=== PATIENT | female | born 1985 | race African-American/Black ===

== ENCOUNTER 2020-09-17 18:15 | Emergency (ER) | payer MEDICAID ==
[~2020-09-17] VITALS: Ht 167.6 cm; Wt 94.8 kg
[2020-09-17 18:26] VITALS: BP 147/97
--- NOTE | 2020-09-17 19:51 | NUR ---
URINE COLLECTED, SENT TO LAB.
[2020-09-17 19:58] LABS: BILIRUBIN,URINE SMALL (NEGATIVE); COLOR,URINE YELLOW (YELLOW); LEUKOCYTE ESTERASE ,URINE Negative (NEGATIVE); NITRITE, URINE Negative (NEGATIVE); PH,URINE 5.5 (5.0-8.0); PROTEIN,URINE 100 mg/dl (NEGATIVE); UGLUCOSE Negative (NEGATIVE)
[2020-09-17 20:05] LABS: BACTERIA,URINE Rare /HPF (None Seen); RBC,URINE 21-50 /HPF (0-2); SQUAMOUS EPITHELIAL CELL,UR Few /HPF (None Seen); WBC,URINE NONE SEEN /HPF (0-3)
[2020-09-17] MEDS ORDERED: FLUT16SP16 NS (20:18)
[2020-09-17] MEDS ORDERED: PSEU120T83 PO (20:18)
[2020-09-17] MEDS ORDERED: AMOX-430 PO (20:18)
== END 2020-09-17 21:13 | disposition home or self-care (01) ==
LOC: ER 18:21
DX: J32.4 Chronic pansinusitis (principal); J30.2 Other seasonal allergic rhinitis; R11.0 Nausea
CPT/HCPCS: 81001; 84703-TC

== ENCOUNTER 2021-11-01 10:39 | Emergency (ER) | payer MEDICAID ==
[~2021-11-01] VITALS: Ht 167.6 cm; Wt 97.5 kg
[~2021-11-01 10:39] MED LIST: AMOX-430 PO; FLUT16SP16 NS; PSEU120T83 PO
[2021-11-01 10:56] VITALS: BP 132/98
--- NOTE | 2021-11-01 11:00 | NUR ---
BIBS C/O SINUS PRESSURE SINCE YESTERDAY. IN ROOM AIR AND DENIES SOB. RESPIRATION REGULAR AND UNLABORED. WILL CONTINUE TO MONITOR THE PATIENT.
[2021-11-01] MEDS ORDERED: FLUT16SP16 BNOSTRILS (11:12)
--- NOTE | 2021-11-01 11:18 | NUR ---
Patient discharged to home in stable condition. Written and verbal after care instructions given. Patient verbalizes understanding of instruction.
== END 2021-11-01 11:19 | disposition home or self-care (01) ==
LOC: ER 10:45
DX: J01.90 Acute sinusitis, unspecified (principal); Z79.899 Other long term (current) drug therapy

== ENCOUNTER 2022-02-07 15:27 | Emergency (ER) | payer MEDICAID ==
[~2022-02-07] VITALS: Ht 167.6 cm; Wt 97.5 kg
[~2022-02-07 15:27] MED LIST changes: +FLUT16SP16 BNOSTRILS
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
--- NOTE | 2022-02-07 17:00 | NUR ---
PATIENT TAKEN TO RADIOLOGY DEPT. AMBULATORY
--- NOTE | 2022-02-07 18:41 | NUR ---
Patient discharged to home in stable condition. Written and verbal after care instructions given. Patient verbalizes understanding of instruction.
[2022-02-07 18:42] VITALS: BP 125/85
== END 2022-02-07 18:40 | disposition home or self-care (01) ==
LOC: ER 15:42
DX: S13.4XXA Sprain of ligaments of cervical spine, initial encounter (principal); S33.5XXA Sprain of ligaments of lumbar spine, initial encounter; S63.501A Unspecified sprain of right wrist, initial encounter; Z79.899 Other long term (current) drug therapy; V89.2XXA Person injured in unspecified motor-vehicle accident, traffic, initial encounter; Y93.89 Activity, other specified; Y92.89 Other specified places as the place of occurrence of the external cause; Y99.8 Other external cause status
CPT/HCPCS: 72050-TC; 72110-TC; 73110; 84703-TC

== ENCOUNTER 2022-04-22 11:05 | Emergency (ER) | payer MEDICAID ==
[~2022-04-22] VITALS: Ht 167.6 cm; Wt 96.2 kg
[2022-04-22] MEDS ORDERED: PSEUDOEPHEDRINE HCL 30 MG TABLET PO ONE (11:30)
[2022-04-22] MEDS ORDERED: BENZONATATE 100 MG CAPSULE PO PRN (11:30)
[2022-04-22] MEDS ORDERED: PSEUDOEPHEDRINE HCL 30 MG TABLET ONE (11:41)
[2022-04-22] MEDS ORDERED: BENZ-13 PO (12:24)
[2022-04-22 12:30] VITALS: BP 130/83
== END 2022-04-22 12:34 | disposition home or self-care (01) ==
LOC: ER 11:09
DX: R05.9 Cough, unspecified (principal); J98.11 Atelectasis; Z20.822 Contact with and (suspected) exposure to COVID-19
CPT/HCPCS: 99284; 71045; 87426; C9803

== ENCOUNTER 2022-09-04 19:18 | Emergency (ER) | payer MEDICAID ==
[~2022-09-04] VITALS: Ht 167.6 cm; Wt 96.6 kg
[~2022-09-04 19:18] MED LIST changes: +BENZ-13 PO
[2022-09-04 19:43] VITALS: BP 134/77
--- NOTE | 2022-09-04 19:43 | NUR ---
BIBSELF C/O L EAR PAIN X4 DAYS
[2022-09-04] MEDS ORDERED: CARB15DR12 LEFT EAR (22:13)
[2022-09-04] MEDS ORDERED: NEOM10DR11 LEFT EAR (22:14)
--- NOTE | 2022-09-04 22:19 | NUR ---
Patient discharged to home in stable condition. Written and verbal after care instructions given. Patient verbalizes understanding of instruction.
== END 2022-09-04 22:20 | disposition home or self-care (01) ==
LOC: ER 19:22
DX: H61.22 Impacted cerumen, left ear (principal); H60.92 Unspecified otitis externa, left ear; Z79.899 Other long term (current) drug therapy

== ENCOUNTER 2022-09-07 11:57 | Emergency (ER) | payer MEDICAID ==
[~2022-09-07] VITALS: Ht 167.6 cm; Wt 96.6 kg
[~2022-09-07 11:57] MED LIST changes: +CARB15DR12 LEFT EAR; +NEOM10DR11 LEFT EAR
--- NOTE | 2022-09-07 12:00 | NUR ---
BIBS FOR EARACHE. A/O X 3, ABLE TO MAKE NEEDS KNOWN, TOLERATING WELL ON ROOM AIR.
[2022-09-07] MEDS ORDERED: AMOX500C2 PO (12:43)
[2022-09-07] MEDS ORDERED: IBUPROFEN 600 MG TABLET PO ONE (13:00)
[2022-09-07] MEDS ORDERED: AMOXICILLIN TRIHYDRATE 500 MG CAPSULE PO ONE (13:00)
[2022-09-07] MEDS ORDERED: AMOX/CLAVULANATE 250 MG TABLET ONE (13:01)
[2022-09-07] MEDS ORDERED: IBUPROFEN 600 MG TABLET ONE (13:01)
--- NOTE | 2022-09-07 13:07 | NUR ---
Patient discharged to home in stable condition. Written and verbal after care instructions given. Patient verbalizes understanding of instruction.
[2022-09-07 13:08] VITALS: BP 142/78
--- NOTE | 2022-09-07 15:01 | NUR ---
CHANGED AMOXICILLIN TO AUGMENTIN INSTEAD
[2022-09-08] MEDS ORDERED: AMOX/CLAVULANATE 250 MG TABLET PO ONE (09:30)
== END 2022-09-07 13:09 | disposition home or self-care (01) ==
LOC: ER 12:01
DX: H92.02 Otalgia, left ear (principal)

== ENCOUNTER 2022-09-22 03:28 | Emergency (ER) | payer MEDICAID ==
[~2022-09-22] VITALS: Ht 167.6 cm; Wt 96.6 kg
[~2022-09-22 03:28] MED LIST changes: +AMOX500C2 PO
[2022-09-22 03:48] VITALS: BP 120/75
--- NOTE | 2022-09-22 03:50 | NUR ---
BIBDAUGHTER WITH CC OF LT EAR PAIN X2 WEEKS, +HEADACHE X3DAYS. PT IS HAVING COUGH AND CONGESTION FOR WEEKS NOW. TOOK IBUPROFEN 800MG NO RELIEF. PLACED IN RM 19.
[2022-09-22] MEDS ORDERED: CIPR7.5D9 EACH EAR (04:04)
--- NOTE | 2022-09-22 04:15 | NUR ---
Patient discharged to home in stable condition. Written and verbal after care instructions given. Patient verbalizes understanding of instruction.
== END 2022-09-22 04:15 | disposition home or self-care (01) ==
LOC: ER 03:30
DX: H60.92 Unspecified otitis externa, left ear (principal); H61.22 Impacted cerumen, left ear; H92.02 Otalgia, left ear; E03.9 Hypothyroidism, unspecified; Z79.899 Other long term (current) drug therapy

== ENCOUNTER 2023-03-24 08:30 | Emergency (ER) | payer MEDICAID ==
[~2023-03-24] VITALS: Ht 167.6 cm; Wt 98.9 kg
[~2023-03-24 08:30] MED LIST changes: +CIPR7.5D9 EACH EAR
[2023-03-24] MEDS ORDERED: KETOROLAC TROMETHAMINE 15 MG/ML VIAL IV ONE (10:00)
[2023-03-24] MEDS ORDERED: ACETAMINOPHEN ES 500 MG TABLET PO ONE (10:00)
[2023-03-24] MEDS ORDERED: IV NS 0.9% 1,000 ML BAG IV ONE (10:00)
[2023-03-24] MEDS ORDERED: ACETAMINOPHEN ES 500 MG TABLET ONE (10:09)
[2023-03-24] MEDS ORDERED: KETOROLAC TROMETHAMINE 15 MG/ML VIAL ONE (10:09)
[2023-03-24 10:24] LABS: BASOPHILS # (AUTO) 0.1 K/uL (0.0-0.2); BASOPHILS % (AUTO) 1.1 % (0.0-2.0); EOSINOPHILS # (AUTO) 0.5 K/uL (0.0-0.7); EOSINOPHILS % (AUTO) 6.9 % (0.0-6.0); HEMATOCRIT 39 % (33-45); HEMOGLOBIN 11.9 g/dL (11.5-14.8); LYMPHOCYTES # (AUTO) 1.7 K/uL (0.8-4.8); LYMPHOCYTES % (AUTO) 22.6 % (20.0-44.0); MEAN CORPUSCULAR HEMOGLOBIN 23 PG (26.0-33.0); MEAN CORPUSCULAR HGB CONC 31 g/dl (31.0-36.0); MEAN CORPUSCULAR VOLUME 73 fL (82-100); MONOCYTES # (AUTO) 0.5 K/uL (0.1-1.30); MONOCYTES % (AUTO) 7.2 % (2.0-12.0); NEUTROPHILS # (AUTO) 4.5 K/uL (1.8-8.9); NEUTROPHILS % (AUTO) 62.2 % (43.0-81.0); PLATELET COUNT (AUTO) 264 K/uL (150-450); RED BLOOD CELL COUNT(AUTO) 5.31 MIL/uL (4.0-5.2); RED CELL DISTRIBUTION WIDTH 20.2 % (11.5-15.0); WHITE BLOOD COUNT (AUTO) 7.3 K/uL (4.3-11.0)
[2023-03-24 10:29] LABS: CALCIUM, SERUM 8.5 mg/dL (8.5-10.1); CARBON DIOXIDE 28 mmol/L (21-32); CHLORIDE 108 mmol/L (98-107); CREATININE 0.7 mg/dL (0.6-1.3); GLUCOSE 89 mg/dL (74-106); POTASSIUM 3.7 mmol/L (3.5-5.1); SODIUM SERUM 140 mmol/L (136-145); UREA NITROGEN, BLOOD 10 mg/dL (7-18)
[2023-03-24 10:34] LABS: ALANINE AMINOTRANSFERASE 19 U/L (12-78); ALBUMIN 3.1 g/dL (3.4-5.0); ALKALINE PHOSPHATASE 54 U/L (46-116); ASPARTATE AMINOTRANSFERASE 16 U/L (15-37); BILIRUBIN,DIRECT 0.1 mg/dL (0.0-0.2); BILIRUBIN,TOTAL 0.3 mg/dL (0.2-1.0); TOTAL PROTEIN, SERUM 7.5 g/dL (6.4-8.2)
[2023-03-24] MEDS ORDERED: IBUP-1955 PO (12:15)
[2023-03-24] MEDS ORDERED: AZIT250T13 PO (12:15)
[2023-03-24] MEDS ORDERED: AMOX-430 PO (12:15)
[2023-03-24] MEDS ORDERED: BENZ-13 PO (12:15)
[2023-03-24 12:52] VITALS: BP 125/85; TEMP 97.9; O2SAT 97
== END 2023-03-24 12:35 | disposition home or self-care (01) ==
LOC: ER 08:32
DX: J06.9 Acute upper respiratory infection, unspecified (principal); R05.9 Cough, unspecified; R09.81 Nasal congestion; R51.9 Headache, unspecified; E03.9 Hypothyroidism, unspecified; Z20.822 Contact with and (suspected) exposure to COVID-19
CPT/HCPCS: 99285; 96374; 71045; 96361; 87426; 93005; 87804 ×2; 85025; 80048; 80076; 36415; 84484; J7030; J1885; C9803

== ENCOUNTER 2023-11-04 21:20 | Emergency (ER) | payer MEDICAID ==
[~2023-11-04] VITALS: Ht 167.6 cm; Wt 99.8 kg
[~2023-11-04 21:20] MED LIST changes: +AZIT250T13 PO; +IBUP-1955 PO
[2023-11-04 22:13] LABS: BASOPHILS % (AUTO) 0.4 % (0.0-2.0); EOSINOPHILS # (AUTO) 0.4 K/uL (0.0-0.7); EOSINOPHILS % (AUTO) 4.4 % (0.0-6.0); HEMATOCRIT 39 % (33-45); HEMOGLOBIN 12.5 g/dL (11.5-14.8); LYMPHOCYTES # (AUTO) 2.9 K/uL (0.8-4.8); LYMPHOCYTES % (AUTO) 33.6 % (20.0-44.0); MEAN CORPUSCULAR HEMOGLOBIN 25 PG (26.0-33.0); MEAN CORPUSCULAR HGB CONC 32 g/dl (31.0-36.0); MEAN CORPUSCULAR VOLUME 80 fL (82-100); MONOCYTES # (AUTO) 0.5 K/uL (0.1-1.30); MONOCYTES % (AUTO) 6.2 % (2.0-12.0); NEUTROPHILS # (AUTO) 4.9 K/uL (1.8-8.9); NEUTROPHILS % (AUTO) 55.4 % (43.0-81.0); PLATELET COUNT (AUTO) 272 K/uL (150-450); WHITE BLOOD COUNT (AUTO) 8.8 K/uL (4.3-11.0)
[2023-11-04 22:37] LABS: CALCIUM, SERUM 8.5 mg/dL (8.5-10.1); CARBON DIOXIDE 27 mmol/L (21-32); CHLORIDE 104 mmol/L (98-107); CREATININE 0.8 mg/dL (0.6-1.3); GLUCOSE 109 mg/dL (74-106); POTASSIUM 3.3 mmol/L (3.5-5.1); SODIUM SERUM 140 mmol/L (136-145); UREA NITROGEN, BLOOD 11 mg/dL (7-18)
[2023-11-04] MEDS ORDERED: KETOROLAC TROMETHAMINE INJ 30 MG/ML VIAL ONE (22:50)
[2023-11-04] MEDS: KETOROLAC TROMETHAMINE INJ 30 MG/ML VIAL IV ONE (22:51)
[2023-11-04 23:03] VITALS: BP 132/82; TEMP 98; O2SAT 98
== END 2023-11-04 23:08 | disposition home or self-care (01) ==
LOC: ER 21:22
DX: R07.9 Chest pain, unspecified (principal); E03.9 Hypothyroidism, unspecified
CPT/HCPCS: 99285; 96374; 71045; 93005 ×3; 85025; 80048; 36415; 84484; J1885